=== PATIENT | female | born 1995 | race Caucasian/White ===

== ENCOUNTER 2017-12-22 09:30 | Outpatient (RCR) | payer MEDICAID, SELFPAY ==
--- NOTE | 2017-11-16 13:42 | HP.PTEVAL ---
Patient's Visit Information JUDIT AHMADI is a 22 year old F referred to Physical Therapy by TEJINDER ALVARES JR, JR with a diagnosis of S/P L pes cavus reconstruction. Date of Evaluation: 11/14/17 Physical Therapist: Rubens Jaeger - Visit Plan Frequency: 3x /Week Duration: 6-8 weeks Plan: Start with ankle mobility, G/S stretching, US for pain management, ankle strengthening. Use aquatics for gait mechanics and mobility. Pt. was apprehensive about aquatic therapy with reports that she does not swim and is afraid of water. I will contact physician to see if we can focus more on land PT. Progress towards gait mechanics and proprioception exercises/activities as tolerated. - Subjective Subjective: Pt. is here today for her initial evaluation s/p L pes cavus reconstruction. Pt. 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 She is here with her grandmother today. Pt. reports having progressive increase in B feet for year. Pt. has having increased pes cavus with most of her wt. being applied to lateral aspect. Pt. will eventually have to have the R foot completed as well. She is now walking with a CAM boot and a walker, but is WBAT, pt./grandmother unsure if she is to be in the CAM boot with all walking or progress out of it. Pt. did confess walking with out boot on to her bathroom and back with walker, no pain reported. Prior to surgery pt. was not using an AD, but did have trouble with balance. Pt. reports no pain currently, but has increased pain to 3/10 at times. Pt. did defer to grandmother to more most questioning. Pt. has been doing some ankle circles and DF/PF. SHe will eventually get fit for bilateral Dayana braces her grandmother. Grandmother reports Pt. and grandmother are hopeful that she will get away from walker and had no pain with all functional mobility. - Pain L foot Pain Intensity (Out of 10): 0 Pain Intensity Range: 3 - Objective POSTURE: pt. has flexed posture in stance. Pt. has increased pes cavus on her R side. Pt. does use AD in stance. Pt. is able to put foot flat on floor. Pt. unwilling to trial standing without AD this date. PALPATION: Pt. denies pain with palpation throughout L foot, and G/S complex. Pt. does have some mild brusing at lateral aspect of calcaneal region, normal heeling incision on dorsal aspect of L foot. Pt. has no signs of infection, but does have mild edema, non pitting. NEUROLOGICAL: Pt. has normal sensation to light and sharp touch throughout bilateral LEs. Pt. has 2+ achilles and patellar DTR bilaterally. ROM: R ankle- DF 4deg, PF 54deg, INV 22deg, EVR 8deg. L ankle- DF 2deg, PF 49deg, INV 20deg, EVR 2deg. Pt. reports no pain with over pressure throughout L ankle foot. Pt. has normal knee ROM bilaterally. Pt. has marked tightness in bilateral G/S musculature. MMT: RLE- ankle- PF 5/5, DF 4+/5, EVR 4+/5, INV 5/5; knee- ext 5-/5, flexion 4+/5; hip- flexion flexion 4+/5, abd 4+/5, ext 4+/5. LLE- ankle DF 4/5, PF 5-/5, EVR 4/5, INV 5-/5. GAIT: Pt. ambulates with CAM boot and standard walker (pt. has FWW at home). Pt. is able to ambulate STARR without LOB. Pt. is able to apply increased wt. through her LLE, but does use UEs to off load LLE during stance phase. Pt. was able to reduce UE assistance with VCing. Pt. declined to trial stairs this date. - Goals Goal 1:: Pt. to be I with HEP. Goal Time Frame: 6-8 Weeks Goal 2:: Pt. to have 10deg of L ankle DF allowing for increased gait mechanics. Goal Time Frame: 6-8 Weeks Goal 3:: Pt. to have increased LLE strength by 1/2 grade in all effected musculature increasing ankle stability and ability to complete all ADLs. Goal Time Frame: 6-8 Weeks Goal 4:: Pt. to be able to grinder set up operator internal L SLS for 30sec indicating increased L ankle proprioception. Goal Time Frame: 6-8 Weeks Goal 5:: Pt. to report 0-1/10 pain with all walking and ADLs allowing for increased quality of life. Goal Time Frame: 6-8 Weeks Goal 6:: Pt. to ambulate without AD unlimited distances with improved gait patterns allowing for increased independence in home and community. Goal Time Frame: 6-8 Weeks - Rehabilitation Potential Physical Therapy Diagnosis: Pt. has hypomobility, LLE weakness and gait difficulty s/p L pes cavus reconstruction. Pt. would benefit from PT to increase L ankle/foot stability, increase L ankle strength, increased G/S length and increase gait mechanics in order to reduce need for AD and get back to prior levels of function. Rehabilitation Potential: Good - Anticipated Interventions Patient/Client Instruction: Educate patient on: Condition, Plan of Care, Risk Factors, Benefits of Fitness Program For the Purpose of:: To foster healthy habits, To improve decision making, To facilitate caregiver knowledge, To improve self management, To prevent re-injury, To improve ability to perform tasks related to life management, To improve tolerance to ADL's Therapeutic Exercise to Include: Strength training, Power training, Endurance training, Balance training, Postural training, Flexibilty training, Gait and locomotor training, Passive ROM, Active ROM For the Purpose of:: To decrease pain, To decrease swelling/inflammation, To increase ROM, To improve nutrient delivery to tissue, To increase oxygenation perfusion, To improve muscle performance and motor function, To improve ability to perform ADL's, To increase tolerance to activity/condition/position, To improve gait and locomotor functions, To improve health of tissue, To decrease soft tissue restriction, To increase flexibility/ROM, To improve balance, To improve safety with gait Cryotherapy (ice pack, ice massage): Yes Ultrasound (thermal/non thermal): Yes For the Purpose of:: To decrease pain, To decrease swelling/inflammation, To increase ROM Thank you for the opportunity to evaluate your patient. For Medicare and Medicare HMO plans, please review the plan of care and approve it. It will need to be FAXED BACK to us at [phone] for Medicare purposes. Please let me know if there are questions or concerns regarding this plan of care. Physician Signature: Date:
--- NOTE | 2018-05-31 16:55 | HP.PTDCNRP_ITS ---
HP - Discharge Summary (1) - Patient Information JUDIT AHMADI was seen in my office for initial evaluation on 11/14/17. The following Plan of Care was established for this patient: Initial Frequency: 3x /Week Initial Duration: 6-8 weeks - Anticipated Interventions Patient/Client Instruction: Educate patient on: Condition, Plan of Care, Risk Factors, Benefits of Fitness Program For the Purpose of:: To foster healthy habits, To improve decision making, To facilitate caregiver knowledge, To improve self management, To prevent re-injury , To improve ability to perform tasks related to life management, To improve tolerance to ADL's Therapeutic Exercise to Include: Strength training, Power training, Endurance training, Balance training, Postural training, Flexibilty training, Gait and locomotor training, Passive ROM, Active ROM For the Purpose of:: To decrease pain, To decrease swelling/inflammation, To increase ROM, To improve nutrient delivery to tissue, To increase oxygenation perfusion, To improve muscle performance and motor function, To improve ability to perform ADL's, To increase tolerance to activity/condition/position, To improve gait and locomotor functions, To improve health of tissue, To decrease soft tissue restriction, To increase flexibility/ROM, To improve balance, To improve safety with gait Cryotherapy (ice pack, ice massage): Yes Ultrasound (thermal/non thermal): Yes For the Purpose of:: To decrease pain, To decrease swelling/inflammation, To increase ROM This patient was last seen in our office 12/22/17. Pertinent comments regarding their Physical therapy will appear below: Pt. was seen for her pes planus reconstruction. Pt. was treated on land and in aquatic setting. Pt. was improving, but slowly. Pt. was to continue with PT, but cancelled her last visit and did not return. Pt. has not been seen in ~5 months and will be DC from PT at this point in time. At this point I will be discontinuing this patient from physical therapy. I would be happy to see this patient again in the future if found appropriate by the physician. Thank you! Rubens Jaeger
== END 2017-12-22 19:00 | disposition home or self-care (01) ==
LOC: PT 09:30
DX: Z98.890 Other specified postprocedural states (principal)
CPT/HCPCS: 97110; 97113; 97161

== ENCOUNTER 2018-04-27 17:16 | Emergency (ER) | payer MEDICAID, SELFPAY ==
[2018-04-27 17:17] VITALS: BP 138/76; PULSE 95; RESP 18; TEMP 36.7; O2SAT 98; BMI 32.0
--- NOTE | 2018-04-27 17:48 | ED.VISSUMM ---
- ER Visit Summary Date of Service: 04/27/18 Chief Complaint: Abscess History of Present Illness: The patient is a 23 F presenting with abscess to left axilla. This started approximately 1 week ago and has been progressively worsening. No drainage at home. No fever. She has a history of similar symptoms approximately a year ago. Denies other complaints. Physical Examination: Vitals are stable. Patient is afebrile. Alert no acute distress. HEENT exam is unremarkable. Neck is supple. Lungs are clear and equal bilaterally. Heart is regular rate and rhythm. Extremities 2 cm left axilla abscess with fluctuance Skin is warm and dry. Remainder of exam is unremarkable. Emergency Department Course and Treatment: Incision and drainage was performed. Incised with 11 blade. Probed to break up loculations. Irrigated with saline. Moderate amount of pus was drained. Patient tolerated this well. She is given prescription for Bactrim and Keflex. Advised to follow-up with primary care physician. Advised return to ED for worsening complaints. Disposition: Discharge home Impression: Left axilla abscess, I&D This note was generated with [employer] dictation software. It may contain incorrect words, spelling, and punctuation that were not noted in review of the chart prior to signing ED Disposition - Plan for ED Patient: Chief Complaint: Abscess Referrals: Genevieve Blanchard DO [Primary Care Provider] -
--- NOTE | 2018-04-27 18:30 | ED.DEP ---
ED Disposition - Plan for ED Patient: Chief Complaint: Abscess Instructions: ED Abscess IandD Prescriptions: Cephalexin Suspension [Keflex Suspension] 500 mg PO Q6 #7 days Smz/Tpm Suspension [Bactrim Suspension 800-160mg/20ml] 20 ml PO Q12H #7 days Referrals: Genevieve Blanchard DO [Primary Care Provider] -
[2018-04-27 18:57] VITALS: PULSE 90; RESP 16
== END 2018-04-27 18:58 | disposition home or self-care (01) ==
PROVIDERS: Emergency Provider Emergency Medicine
DX: L02.412 Cutaneous abscess of left axilla (principal)
CPT/HCPCS: 10060; 99282

== ENCOUNTER → 2018-09-07 15:20 | Outpatient (CLI) | payer MEDICAID, SELFPAY ==
[2018-09-07 17:42] LABS: Vitamin D,25 Hydroxy 7.3 ng/mL (29.95-100.01)
[2018-09-07 17:45] LABS: Thyroid Stim Hormone (TSH) 0.66 uIU/mL (0.358-3.74)
[2018-09-12 03:07] LABS: Immunoglobulin A 167 mg/dL (87-352); Immunoglobulin G 766 mg/dL (700-1600); Immunoglobulin M 256 mg/dL (26-217)
[2018-09-12 09:40] LABS: Immunoglobulin E 13 IU/mL (0-100)
== END ==
PROVIDERS: Referring Provider Specialist; Visit Provider Specialist
DX: E55.9 Vitamin D deficiency, unspecified (principal); E04.9 Nontoxic goiter, unspecified; L02.429 Furuncle of limb, unspecified; M81.8 Other osteoporosis without current pathological fracture
CPT/HCPCS: 36415; 82306; 82784; 82785; 84443

== ENCOUNTER → 2018-12-07 14:44 | Outpatient (CLI) | payer MEDICAID, SELFPAY ==
--- NOTE | 2018-12-07 14:58 | RAD_ITS ---
STUDY: BONE LENGTH STUDIES. SCANOGRAM. REASON FOR EXAM: Female, 23 years old. Left foot surgical reconstruction. TECHNIQUE: 4 AP views of the lower extremities were obtained. COMPARISON: None. FINDINGS: No significant leg length discrepancy is seen. RAD/Bone Length IMPRESSION: No significant leg length discrepancy is seen. Electronically Signed: Pavel Coats MD at 14:52 EST , Service support ,
[2018-12-07 17:49] LABS: Hematocrit 47.5 % (37-47); Hemoglobin 15.2 g/dl (12.0-15.0); Mean Corpuscular Hgb 30.8 pg (27.0-32.0); Mean Corpuscular Volume 96.3 fL (81-99); Mean Platelet Vol. 12.1 fl (6.2-12.0); Platelet Count 220 K/mm3 (150-450); RBC Distribution Width CV 12.8 % (11.6-14.6); RBC Distribution Width SD 44.7 fl (35.1-43.9); Red Blood Count 4.93 M/mm3 (4.2-5.4); White Blood Count 10.7 K/mm3 (4.4-11.0)
[2018-12-07 17:54] LABS: Scan Indicated on CBC? Y/N NO
[2018-12-07 18:06] LABS: ALB/GLOB Ratio 1.1 RATIO (0.9-2.4); AST(SGOT) 21 U/L (15-37); Alanine Aminotransfer ALT/SGPT 25 U/L (13-56); Albumin, Serum 4.1 g/dL (3.2-5.0); Alkaline Phosphatase 180 U/L (45-117); Anion Gap 8 (5-15); BUN 8 mg/dL (7-18); BUN/Creat Ratio 13.3 RATIO (10-20); Bilirubin, Direct 0.06 mg/dL (0.00-0.30); Calcium,Total 9.3 mg/dL (8.5-10.1); Chloride 104 mmol/L (98-107); EST Glomerular Filtration Rate 131 mL/min (>60); Est Glom Filt Rate - Afr Amer 158 mL/min (>60); Globulin 3.8 g/dL (2.2-4.2); Glucose 84 mg/dL (74-106); Potassium 4.2 mmol/L (3.5-5.1); Protein, Total 7.9 g/dL (6.4-8.2); Sodium Level 138 mmol/L (136-145)
[2018-12-07 18:29] LABS: Carbamazepine (Tegretol) 9.9 ug/mL (4.0-12.0)
== END ==
PROVIDERS: Referring Provider Podiatrist; Visit Provider Podiatrist
DX: M21.70 Unequal limb length (acquired), unspecified site (principal); G40.909 Epilepsy, unspecified, not intractable, without status epilepticus
CPT/HCPCS: 36415; 77073; 80053; 80156; 82248; 85027

== ENCOUNTER → 2019-04-13 | Outpatient (CLI) | payer MEDICAID, SELFPAY ==
[2019-04-13 14:22] LABS: AST(SGOT) 17 U/L (15-37); Alanine Aminotransfer ALT/SGPT 23 U/L (13-56); Albumin, Serum 3.7 g/dL (3.2-5.0); Alkaline Phosphatase 159 U/L (45-117); Bilirubin, Direct 0.09 mg/dL (0.00-0.30); Protein, Total 7.7 g/dL (6.4-8.2)
== END | disposition home or self-care (01) ==
LOC: MTLAB 12:19
PROVIDERS: Referring Provider Clinical Nurse Specialist Acute Care; Visit Provider Clinical Nurse Specialist Acute Care
DX: R56.9 Unspecified convulsions (principal); Z87.898 Personal history of other specified conditions
CPT/HCPCS: 36415; 80076

== ENCOUNTER → 2019-08-07 | Outpatient (CLI) | payer MEDICAID, SELFPAY ==
[2019-08-07 17:49] LABS: Absolute Lymphocyte Count 2.77 X10^3/uL (0.83-4.51); Absolute Neutrophil Count 8.5 X10^3/uL (2.0-7.7); Basophil# 0.02 X10^3/uL; Basophil% 0.2 % (0-1); Eosinophil# 0.08 X10^3/uL; Eosinophils% 0.7 % (0-5); Hematocrit 45.9 % (37-47); Hemoglobin 14.6 g/dL (12.0-15.0); Lymphocyte # 2.77 X10^3/ul (4.0); Lymphocyte % 23.3 % (19-41); Mean Corp Hgb Conc 31.8 g/dL (32-36); Mean Corpuscular Hgb 29.4 pg (27.0-32.0); Mean Corpuscular Volume 92.4 fL (81-99); Mean Platelet Vol. 12.4 fl (6.2-12.0); Monocyte# 0.44 X10^3/uL; Monocyte% 3.7 % (0-10); NRBC Flagged by Analyzer 0 % (0-5); Neutrophil # 8.51 X10^3/uL (2.7-7.7); Neutrophil % 71.7 % (47-70); Platelet Count 189 K/mm3 (150-450); RBC Distribution Width CV 13.5 % (11.6-14.6); Red Blood Count 4.97 M/mm3 (4.2-5.4); White Blood Count 11.9 K/mm3 (4.4-11.0)
[2019-08-07 18:07] LABS: ALB/GLOB Ratio 1.1 RATIO (0.9-2.4); AST(SGOT) 14 U/L (15-37); Alanine Aminotransfer ALT/SGPT 23 U/L (13-56); Albumin, Serum 3.9 g/dL (3.2-5.0); Alkaline Phosphatase 156 U/L (45-117); Anion Gap 5 (5-15); BUN 6 mg/dL (7-18); BUN/Creat Ratio 8.5 RATIO (10-20); Calcium,Total 9.1 mg/dL (8.5-10.1); Chloride 106 mmol/L (98-107); Creatinine, Serum 0.71 mg/dL (0.55-1.02); EST Glomerular Filtration Rate 107 mL/min (>60); Est Glom Filt Rate - Afr Amer 130 mL/min (>60); Globulin 3.5 g/dL (2.2-4.2); Glucose 122 mg/dL (74-106); Potassium 4.3 mmol/L (3.5-5.1); Protein, Total 7.4 g/dL (6.4-8.2); Sodium Level 139 mmol/L (136-145)
== END | disposition home or self-care (01) ==
LOC: MFPLAB 15:19
PROVIDERS: Visit Provider Family Medicine
DX: Z01.818 Encounter for other preprocedural examination (principal)
CPT/HCPCS: 36415; 80053; 85025

== ENCOUNTER 2019-08-17 06:00 | Day surgery (SDC) | payer MEDICAID, SELFPAY ==
[2019-08-17 06:43] VITALS: BP 133/89; PULSE 60; RESP 18; TEMP 36.8; O2SAT 96; BMI 31.7
[2019-08-17 07:01] LABS: Partial Thromboplast Time 29.3 Seconds (24.1-36.2)
[2019-08-17] MEDS: Lactated Ringers 1,000 ML 100 ML IV (07:07)
[2019-08-17 07:08] LABS: Internal QC Validated? YES +Cl - CLEAR BKGD; Pregnancy, Serum, hCG Quali. NEGATIVE Negative
--- NOTE | 2019-08-17 07:26 | PCM.DC.POD ---
Discharge Diet: Light diet - advance as tolerated Discharge Activity: Use Walker Weight Bearing Status: No weight bearing - No weight on toes of left foot Keep extremity elevated above heart level: Left Leg - Keep left foot elevated with pillows for at least 50 minutes of every hour Call your doctor if your incision/area has: Continuous Slow Oozing, Sudden Increased Bleeding, Foul Smelling Discharge Call your doctor if you observe: Fever of 101 or Higher, Shortness of breath, Chest pain, Increased palpitations (irregular heartbeat), Calf discomfort, Uncontrolled pain Cleanse incision/area with: Do not get Incision Wet, Keep Dressing Clean & Dry Allergies/Adverse Reactions: Allergies amoxicillin [From Augmentin] Allergy (Verified 08/17/19 06:42) Hives clavulanic acid [From Augmentin] Allergy (Verified 08/17/19 06:42) Hives Iodinated Contrast Media [CONTRASTS] Allergy (Verified 08/17/19 06:42) Hives Penicillins [PCN] Allergy (Verified 08/17/19 06:42) Hives phenobarbital Allergy (Verified 08/17/19 06:42) Hives Medications to take at Discharge Carbamazepine [Tegretol] 100 mg PO BIDCM 07/02/16 Cholecalciferol (Vitamin D3) [Vitamin D3] 2,000 unit PO DAILY 08/13/19 Fexofenadine HCl [Gloria Allergy] 180 mg PO DAILY 08/13/19 Hydrocodone/Acetaminophen [Vicodin 5-300 mg Tablet] 1 - 2 tab PO Q6H PRN PRN 3 Days #24 tab 08/17/19 The following prescriptions were given: Hydrocodone/Acetaminophen [Vicodin 5-300 mg Tablet] 1 - 2 tab PO Q6H PRN PRN 3 Days #24 tab PRN Reason: Pain Score 1-10 Prescription Printed Orders to be completed after discharge: Partial Thromboplast Time Time Frame: 08/17/19, Facility: [facility], Location: Laboratory ,Urine Time Frame: 08/17/19, Facility: [facility], Location: Laboratory Primary Care Physician: Bernice Mc MD [Primary Care Provider] - Test Results: Test results from this visit will be discussed in further detail at your follow-up appointment, if applicable. Please Follow Up With: Elbert Sanford DPM When: within 1 week, sooner if needed
--- NOTE | 2019-08-17 07:30 | BON_PTH ---
PATIENT: JUDIT AHMADI [place] [facility] [place][id number] AGE/SX: 24/F ROOM: RE08/17/[address]: Dr. Elbert Sanford DPM : 1995 BED: DIS: 08/17/2019 SPEC #: [id number] RECD: 08/17/19 11:54 STATUS: CHRIS DENISE #: [id number] [place]: 08/17/19 07:[address]: Elbert Sanford DEPT: SURGICAL PATHOLOGY RECD BY: Daren Suarez ENTERED: 08/17/19 13:06 SP TYPE: Bone OTHR DR: Dr. Bernice Mc MD Tissues: A - Bone of foot, NOS B - Bone of foot, NOS Procedures: Decalcification bone/plaque Surgery Specimen Level III HEADER OPERATION: Arthrodesis left fourth toe, derotational arthroplasty PRE-OP DIAGNOSIS: Left foot pain, hammertoe TISSUE SUBMITTED: Bone, fourth and fifth toes MICROSCOPIC DIAGNOSIS Bone, fourth and fifth toes: Pieces of bone with reactive changes, clinically hammertoe. BRIDGETTE:kim 08/22/19 MICROSCOPIC DESCRIPTION Slides are reviewed. GROSS DESCRIPTION Received in fixative is one container labeled with the patient's name and designated bone, fourth and fifth toes. The specimen consists of four variable sized pieces of bone that in aggregate measure 1.5 x 1 0.3 cm. The entire specimen is submitted in one cassette after decalcification. / BRIDGETTE:kim 08/17/19 TC:5 CPT: 47246, 22668
--- NOTE | 2019-08-17 07:30 | RAD_ITS ---
STUDY: X-RAY - LEFT FOOT CLINICAL: Fourth toe arthrodesis and derotational arthroplasty and contracture release of the fifth toe. TECHNIQUE: 2 intraoperative images of the foot. COMPARISON: None. FINDINGS: There is a threaded screw transfixing the phalanges of the fourth digit. There are resections of the distal fifth metatarsal and fifth proximal phalangeal head with a transfixing pin. 32 seconds of fluoroscopy time was used. Electronically Signed: Tobias Chacon MD at 12:36 EDT Tel , Service support , RAD/Foot 2 Views
[2019-08-17] MEDS: Bupivacaine Mpf 0.5% 30 ML VIAL (07:43)
--- NOTE | 2019-08-17 08:48 | RAD_ITS ---
STUDY: X-RAY - LEFT FOOT CLINICAL: Female, 24 years old. Arthrodesis of the left fourth toes. TECHNIQUE: 3 view(s) of the foot. COMPARISON: Comparison is made with prior examination done earlier today. FINDINGS: The patient is status post arthrodesis of the fifth metatarsophalangeal joint as well as the interphalangeal joints of the fourth toe. There has been resection of the distal portion of the fifth metatarsal. Prior fusion of the distal tarsal bones. RAD/Foot min 3 Views IMPRESSION: Postoperative changes as described. Electronically Signed: Pavel Coats, at 15:04 EDT , Service support ,
--- NOTE | 2019-08-17 08:49 | OP.PCM_ITS ---
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 Derotational arthroplasty of the left 5th toe tactical intelligence officer: yes - Dr. Shannan Sorenson Type of Anesthesia:: General, Local Specimen's removed: Bone from left 4th and 5th toes sent to pathology Estimated Blood Loss (mL): < 1 mL Description of Procedure: Indications: This is a 24 year-old female who has had chronic left 4th toe pain, the 4th toe is contractured hammer toe, and also the left 5th toe is contractured, floating, shortened, and deviated into the 4th toe causing pain. She continues to have pain despite padding, offloading, changes in shoegear, ibuprofen, and injection. She has had previous left foot surgery which has left the 5th toe short and now deformed. Due to the continued pain and symptoms we discussed all of the options, and she elected to proceed with arthrodesis of the 4th toe and derotational arthroplasty of the 5th. This was discussed with her and her grandmother in great detail. We reviewed all the possible benefits, risks, goals and expectations. They expressed understanding and agreement. We also reviewed the typical postoperative and expected postoperative course. They expressed understanding and agreement and wanted to proceed forward with surgical intervention. All alternative options were discussed with them and all the possible benefits, risks of the alternative options were discussed with them as well in detail. They expressed understanding and agreement and again wants to proceed for surgical intervention. The consent form was reviewed with them and they were freely signed. No guarantees were given or implied. Operative Procedure: The patient was brought back into the operating room and was placed onto the operative table in the supine position. She was carefully secured to the operating room table with safety belt around her waist. The patient did receive 900mg of intravenous Clindamycin for antibiotic prophylaxis, the patient received anesthesia per the anesthesiologist. The skin w as cleansed with 70% Isopropyl alcohol and a total of 10mL of 0.5% Bupivacaine plain was given a 4th and 5th ray nerve block. A well-padded pneumatic tourniquet was applied around her left ankle. The left foot was scrubbed, prepped and draped in the usual aseptic fashion. Further attention was directed to the left 4th and 5th toes, which was contracted and hammered as noted above. The 5th toe was in significant varus and was significantly shortened. The left foot was elevated for 3 minutes and the right ankle pneumatic tourniquet was inflated to 250mmHg. Attention was directed to the 4th toe on the left foot. A dorsal linear longitudinal incision was made over the proximal interphalangeal joint (PIPJ) of the toe. An incision was made longitudinally to the extensor digitorum longus tendon and split down the middle, leaving the ends intact, this was done with a 15 blade. The dorsal PIPJ joint capsule was incised with a 15 blade. The cartilage from the head of the proximal phalanx and the cartilage on the base of the middle phalanx was resected using a powered sagittal saw. The site was flushed out with copious amounts of normal saline solution. An Arthrex FT compression screw was placed through the phalanges of the toe holding the toe in rectus position. This was confirmed with intra operative fluoroscopy. The site was again flushed out with copious amounts of normal saline solution. The skin was reapproximated using 4-0 Monocryl. Attention was directed to the 5th toe on the left foot. Two oblique semi- elliptical converging skin incisions were made around the dorsal aspect of the proximal interphalangeal joint (PIPJ) of the 5th toe. The skin within the incisions was excised. The extensor digitorum longus tendon was visualized and incised transversely with a 15 blade. The dorsal PIPJ joint capsule was incised with a 15 blade. The extensor tendon was reflected off of the head of the proximal phalanx. The PIPJ was visualized. The head of the proximal phalanx was resected using a powered sagittal saw, and this was sent to pathology. The site was flushed out with copious amounts of normal saline solution. A 0.062 inch kwire was placed through the phalanges of the toe and along the 5th metatarsal holding the toe in rectus position clinically. This was confirmed with intra operative fluoroscopy. The site was again flushed out with copious amounts of normal saline solution. The joint capsule and extensor digitorum longus tendon was reapproximated using 4-0 Vicryl, the skin was reapproximated using 4-0 Nylon. The kwire was trimmed outside of the toe at the distal aspect and was capped with a pin cap. The left ankle tourniquet was deflated and there was immediate return of warmth and perfusion to the foot, including all toes. CFT < 2 seconds to all toes with normal temperature. Total tourniquet time was 51 minutes. A dressing was applied which consisted of Adaptic, 4x4 gauze, kerlix and rodrick bandage. The patient tolerated the above procedure well and anesthesia well with no complications. The patient was transported from the operative room to the recovery room with vital signs stable and in good condition. Post operative ord ers were placed, and post operative instructions were reviewed with the her grandmother was with her today (verbal and written). No weightbearing left forefoot, keep the dressing clean, dry and intact. Keep foot elevated for at least 50 minutes of every hour. Post operative prescriptions for Vicodin for pain control. Patient to follow up in 3-4 days, sooner if needed. Also of note post operative xrays were obtained of the right foot in the recovery room, which were reviewed. These confirmed arthrodesis of td 4th toe and arthroplasty of the 5th toe with kwire intact, and toes in good alignment clinically. Grafts/Implants Used: Arthrex FT compression screw, 1 x 0.062in K wire - Complications None
[2019-08-17 08:57] VITALS: BP 133/89; BP 156/93; PULSE 103; RESP 18; TEMP 36.3; O2SAT 93
[2019-08-17 09:00] VITALS: BP 133/89; BP 159/85; PULSE 95; RESP 18; O2SAT 93
[2019-08-17 09:15] VITALS: BP 133/89; BP 159/87; PULSE 93; RESP 18; O2SAT 95
[2019-08-17 09:27] VITALS: BP 133/89; BP 157/84; PULSE 91; RESP 18; TEMP 36.3; O2SAT 97
[2019-08-17 10:21] VITALS: BP 121/72; BP 133/89; PULSE 97; RESP 18; TEMP 36.4; O2SAT 98
== END 2019-08-17 10:54 | disposition home or self-care (01) ==
LOC: SDC 06:01 → AC 06:02
PROVIDERS: Anesthesiology; Family Provider Family Medicine; PCP Family Medicine; Referring Provider Podiatrist; Visit Provider Podiatrist
PROC: (CPT 28285; principal; 2019-08-17 07:15)
DX: M20.42 Other hammer toe(s) (acquired), left foot (principal); F79 Unspecified intellectual disabilities; R56.9 Unspecified convulsions; Z79.899 Other long term (current) drug therapy
CPT/HCPCS: 28285 ×2; 73620; 73630; 76000; 84703; 85730; 88304; 88311; 93005; C1713; J7120; J2405; J3490

== ENCOUNTER → 2019-10-19 15:25 | Outpatient (CLI) | payer MEDICAID, SELFPAY ==
--- NOTE | 2019-10-19 15:27 | RAD_ITS ---
STUDY: X-RAY - THORACIC SPINE REASON FOR EXAM: Female, 24 years old. UPPER BACK PAIN, NO INJURY TECHNIQUE: 3 view(s) of the thoracic spine were obtained. COMPARISON: None. FINDINGS: Normal kyphosis of the thoracic spine. There is no substantial scoliosis. Normal thoracic vertebrae and endplates. Normal disc space heights. The soft tissue structures are unremarkable. RAD/Thoracic Spine 3 Views IMPRESSION: Normal x-ray examination of the thoracic spine. Electronically Signed: Margy Steele MD at 2:46 EST , Service support ,
== END ==
PROVIDERS: Family Provider Family Medicine; PCP Family Medicine; Referring Provider Family Medicine; Visit Provider Family Medicine
DX: M54.6 Pain in thoracic spine (principal)
CPT/HCPCS: 72072

== ENCOUNTER 2019-10-29 15:44 | Emergency (ER) | payer MEDICAID, SELFPAY ==
[2019-10-29 15:46] VITALS: BP 125/74; PULSE 105; PULSE 107; RESP 16; RESP 18; TEMP 36.9; O2SAT 97; BMI 31.8
--- NOTE | 2019-10-29 17:30 | ED.VISSUMM ---
- ER Visit Summary Date of Service: 10/29/19 Chief Complaint: Abscess History of Present Illness: The patient is a 24 F who presents with an abscess that has been getting worse over the past week. Patient saw her primary care physician for this. Patient was given an injection of Rocephin and was started on Bactrim. Patient states the abscess is getting worse. Patient denies any discharge or drainage. Patient denies any fevers or chills. Patient denies any nausea or vomiting. Patient states her pain is worse with any palpation. Physical Examination: Vital signs are stable. Patient is afebrile. Patient is in no acute distress. Skin is warm and dry. There is a tender fluctuant abscess on the medial aspect of the right proximal thigh. There is some mild fluctuance. There is no discharge or drainage. There is some mild surrounding erythema. Sensation was intact to light touch bilateral in the lower extremities. Pedal pulses are equal bilateral. There is good range of motion. Emergency Department Course and Treatment: The area was cleaned and then dressed x1% plain lidocaine locally. The area was incised with a #11 blade scalpel using a cruciate incision. Moderate amount of purulent drainage was expressed. Patient tolerated the procedure well. Bacitracin dressing was applied. Patient was instructed to continue her Bactrim as prescribed. Patient was instructed to follow-up with her primary care physician in 5 to 7 days. Patient and family understood and were agreeable with the plan. All questions were answered. Disposition: Discharge home Impression: Right thigh abscess This note was generated with [employer] dictation software. It may contain incorrect words, spelling, and punctuation that were not noted in review of the chart prior to signing ED Disposition - Plan for ED Patient: Disposition: Home or Assisted Living Diagnosis: Abscess of right thigh Instructions: ABSCESS, Incision and Drainage Referrals: Genevieve Blanchard DO [Primary Care Provider] - 5-7 Days
== END 2019-10-29 18:48 | disposition home or self-care (01) ==
PROVIDERS: Emergency Provider Emergency Medicine
DX: L02.415 Cutaneous abscess of right lower limb (principal); Z79.2 Long term (current) use of antibiotics; K21.9 Gastro-esophageal reflux disease without esophagitis
CPT/HCPCS: 10060; 99283

== ENCOUNTER → 2021-04-30 10:30 | Outpatient (CLI) | payer MEDICAID, SELFPAY ==
[2021-04-30 12:20] LABS: AST(SGOT) 14 U/L (15-37); Alanine Aminotransfer ALT/SGPT 15 U/L (13-56); Albumin, Serum 3.7 g/dL (3.2-5.0); Alkaline Phosphatase 148 U/L (45-117); Anion Gap 5 (5-15); BUN 9 mg/dL (7-18); BUN/Creat Ratio 13.7 RATIO (10-20); Calcium,Total 9.4 mg/dL (8.5-10.1); Chloride 103 mmol/L (98-107); Creatinine, Serum 0.66 mg/dL (0.55-1.02); EST Glomerular Filtration Rate 116 mL/min (>60); Est Glom Filt Rate - Afr Amer 140 mL/min (>60); Globulin 3.6 g/dL (2.2-4.2); Glucose 94 mg/dL (74-106); Potassium 4.5 mmol/L (3.5-5.1); Protein, Total 7.3 g/dL (6.4-8.2); Sodium Level 139 mmol/L (136-145)
[2021-04-30 12:25] LABS: Carbamazepine (Tegretol) 10.8 ug/mL (4.0-12.0)
== END ==
PROVIDERS: Referring Provider Clinical Nurse Specialist Acute Care; Visit Provider Clinical Nurse Specialist Acute Care
DX: G40.309 Generalized idiopathic epilepsy and epileptic syndromes, not intractable, without status epilepticus (principal)
CPT/HCPCS: 36415; 80053; 80156

== ENCOUNTER 2021-05-13 09:30 | Outpatient (RCR) | payer MEDICAID, SELFPAY ==
--- NOTE | 2021-04-06 10:49 | HP.PTEVAL_ITS ---
Patient's Visit Information JUDIT AHMADI is a 25 year old F referred to Physical Therapy by TEJINDER ORO with a diagnosis of L foot contraction. Date of Evaluation: 04/06/21 Physical Therapist: Brayden Boogie, VENKATAT, OCS, CSCS - Visit Plan Frequency: 2x /Week Duration: 2 Months Plan: 2x/week for 6-8 weeks as needed for aquatic therapy for. SLS. ankle AROM/PROM stretches into DF. Strengthenin ankles, LE and postural focus/strength. - Subjective L foot surgery for tor tendon trasnfer due to tightness weakness and foot rotating in. That was 02/06, 2 months ago. Feels good, no pain. Been in cast at first with walker, now boot everywhere and no AD. No falls. Sleeps well. No exercises except AP, inv/ev.. Takes boot off later in day to move adn walk to bathroom. Works at the [employer] in [facility] through [employer]. 2 days per week which is normal for her. Enjoys singing, writing. Has to sit now. Needs help off and on stage. Lives with grandma with steps and uses stairlift. Electric bath lift also. Dresses adn bathroom self Can help cook. Needs assist with bath due to balance. 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 - Objective Walks with boot on L I with boot related gait deficits.. Up from chair without UE I. Steps up with R and down with L with two rails I. Bed trasnfer I. Boot on L foot donned adn doffed I, Grandma did help put it back on. L foot AROM -18 DF and PROM -4 DF, Inv 18 AROM and eversion 3 degree eversion. adn 50 PF. Metatarsals moving well. Incisions healed, with one scab on medial incision. No signs of redness heat or swelling. strength DF 3, PF 3+, eversion 3 and inversion 3. R foot AROM eversion 5 , inv 22, DF -10, PF 50, strength at 4-. knee strength 3+ L and 4- R. hip strength 3+ B. no c/o pain today. Unable to SLS today and not confident enough with SLS to step over an object effectively. - Balance Scores Functional Gait Assessment Score: 22 % Disability: 26.6700 - Goals Goal 1:: AROM L foot -5 degrees, inversion 20, eversion 4 Goal Time Frame: 6-8 Weeks Goal 2:: strength L ankle 3+ latia ll motions Goal Time Frame: 4-6 Weeks Goal 3:: SLS 3 seconds each leg Goal Time Frame: 6-8 Weeks Goal 4:: Pt feel walking normal without boot and back to 100% normal gait and function Goal Time Frame: 6-8 Weeks Goal 5:: 45 LEFS - Rehabilitation Potential Physical Therapy Diagnosis: Tightness in L foot and weakness after recent surgery. Rehabilitation Potential: Fair - Anticipated Interventions Patient/Client Instruction: Educate patient on: Condition, Plan of Care For the Purpose of:: To improve nutrient delivery to tissue, To improve muscle performance and motor function, To improve health of tissue, To improve balance Therapeutic Exercise to Include: Strength training, Balance training, Postural training, Flexibilty training, Gait and locomotor training, In an aquatic setting, Passive ROM, Active ROM For the Purpose of:: To increase ROM, To improve muscle performance and motor function, To increase tolerance to activity/condition/position, To improve gait and locomotor functions, To improve safety with gait Thank you for the opportunity to evaluate your patient. For Medicare and Medicare HMO plans, please review the plan of care and approve it. It will need to be FAXED BACK to us at [phone] for Medicare purposes. For Medicare only, by signing this I certify the plan of care. Please let me know if there are questions or concerns regarding this plan of ca re. Physician Signature: Date:
--- NOTE | 2021-07-20 07:20 | HP.PT.NRP ---
JUDIT AHMADI was seen in my office for initial evaluation on 04/06/21. The following Plan of Care was established for this patient: Initial Frequency: 2x /Week Initial Duration: 2 Months Patient/Client Instruction: Educate patient on: Condition, Plan of Care For the Purpose of:: To improve nutrient delivery to tissue, To improve muscle performance and motor function, To improve health of tissue, To improve balance Therapeutic Exercise to Include: Strength training, Balance training, Postural training, Flexibilty training, Gait and locomotor training, In an aquatic setting, Passive ROM, Active ROM For the Purpose of:: To increase ROM, To improve muscle performance and motor function, To increase tolerance to activity/condition/position, To improve gait and locomotor functions, To improve safety with gait This patient was last seen in our office 05/13/21. Pertinent comments regarding their Physical therapy will appear below: Pt seen for 6 visits in pool therapy. she no showed for her last visit and neglected to reschedule or recheck. aT this point, it has been over two months and I will disocnitnue due to nonattendance. At this point I will be discontinuing this patient from physical therapy. I would be happy to see this patient again in the future if found appropriate by the physician. Thank you! Brayden Boogie, DPT, OCS, CSCS Balance/Gait/Functional tests - Balance/Special Test Scores Functional Gait Assessment Score: 22 % Disability: 26.6700 Lower Extremity Functional Score: 34
== END 2021-05-13 19:00 | disposition home or self-care (01) ==
LOC: PT 09:30
DX: M24.575 Contracture, left foot (principal)
CPT/HCPCS: 97113; 97161

== ENCOUNTER 2023-02-28 17:58 | Emergency (ER) | payer MEDICAID, SELFPAY ==
[2023-02-28 17:59] VITALS: PULSE 86; RESP 16; TEMP 35.4; O2SAT 100; BMI 27.6
--- NOTE | 2023-02-28 18:58 | EDS_ITS ---
HPI History of Present Illness Chief Complaint: Cellulitis Narrative Narrative: With past medical history of seizure disorder presents with pain and swelling of her left fifth digit fingertip that she has had for a week. Mother states that it is from biting her nails. Her mother had performed incision and drainage on her left fifth fingertip previously with a sterile needle. They took her to urgent care and she had been put on cephalexin, but it was not improving. They took her back and they added Bactrim. Mother states that her fingertip is getting worse and more red and spreading. She has not had fever or chills. No nausea or vomiting. Mother states that patient has a problem where her body can fight infection. Concomitantly she has erythema around her umbilicus which her mother put yeast medicine on today. She presents mainly because of the increased redness in the paronychial area on her fifth digit. No lymphangitis or other symptoms. PFSH PFSH Home Medications carbamazepine 200 mg tablet 100 mg PO BIDCM 07/02/16 [History Last Taken 08/17/19] cholecalciferol (vitamin D3) 50 mcg (2,000 unit) capsule 2,000 unit PO DAILY 08/13/19 [History Last Taken Unknown] fexofenadine 180 mg tablet 180 mg PO DAILY 08/13/19 [History Last Taken Unknown] Allergy/AdvReac Type Severity Reaction Status Date / Time amoxicillin [From Augmentin] Allergy Hives Verified 02/28/23 17:59 clavulanic acid Allergy Hives Verified 02/28/23 17:59 [From Augmentin] Iodinated Contrast Media Allergy Hives Verified 02/28/23 17:59 [CONTRASTS] Penicillins [PCN] Allergy Hives Verified 02/28/23 17:59 phenobarbital Allergy Hives Verified 02/28/23 17:59 Social History Smoking Status: Never smoker ROS ROS ED ROS Narrative Constitutional: No fever, no chills. HEENT: No sore throat. No neck pain. No loss of vision. No rhinorrhea. Cardiovascular: No chest pain. No palpitations. No pedal edema. Respiratory: No cough, no shortness of breath. Abdominal: No abdominal pain. No nausea. No vomiting. Genitourinary: No dysuria. No hematuria. Musculoskeletal: No myalgias. No arthralgias. Neurologic: No headaches. No dizziness. No lightheadedness. Skin: No rash. Increased redness left paronychial fingertip. Positive redness to umbilicus. Psychiatric: No depression. No anxiety. EXAM Physical Exam Narrative Exam Narrative: Afebrile. Vital signs noted. HEENT: Normocephalic. Atraumatic. PERRL, EOMI. Neck soft and supple. No point tenderness or step off. Cardiovascular: Regular rate and rhythm. No murmurs, rubs, or gallops appreciated. Respiratory: No tachypnea. Lungs clear to auscultation bilaterally. Gastrointestinal: Abdomen soft, nontender, with normoactive bowel sounds. No rebound or guarding. Neurological: Awake. Alert. Nonfocal, nonlateralizing. Skin: No rash. Normal color. No pallor. Positive paronychial infection with dried blood on medial aspect of left fifth digit. No felon. Good capillary refill. No lymphangitis. Full range of motion of digit at DIP and PIP joint. Positive erythema but no purulent drainage in the umbilicus. Musculoskeletal: No pedal edema. Full range of motion extremities. Const Vital Signs: 02/28/23 17:59 02/28/23 19:40 02/28/23 19:50 Temperature 95.8 F L 98.0 F Temperature Source Temporal Oral Pulse Rate 86 79 Respiratory Rate 16 18 Respiratory Effort Normal Short of Breath Blood Pressure 106/71 Blood Pressure Mean 82 Pulse Ox 100 99 Oxygen Delivery Method Room Air Room Air MDM MDM [facility] Narrative Medical decision making narrative: I do not see any area that I would need to perform another incision and drainage of this paronychial infection. There is no lymphangitic streaking. With concern for osteomyelitis I will obtain an x-ray of the digit to look for bony destruction. I will obtain laboratory work to look for elevated white count, and obtain a lactic to help rule out sepsis. However, she is not meeting any SIRS criteria currently as her pulse is normal at 86. I reviewed the patient's laboratory work and she has elevated white count of 15.0, hemoglobin normal at 14.8, hematocrit 46.3, platelet count normal at 230. CMP shows normal sodium of 137 with normal potassium of 4.3. Lactic acid is normal at 1.4. I do not feel she is septic. I reviewed her imaging and interpreted the finger x-ray and see no evidence of bony destruction. I reviewed the radiology report which confirms my independent interpretation of her x-ray. I did give her 1 dose of IV antibiotics in the form of aztreonam given her multiple allergies to amoxicillin, Augmentin, and penicillins although she is currently taking cephalexin, or at least started it and is now on Bactrim. She also received a dose of vancomycin. At this point in time, I discussed observation with the patient and her mother. Through shared decision-making, the patient states she would like to go home and continue outpatient treatment. I do feel that this is reasonable as she still has a few days of antibiotics left, at least for according to her mother. I feel she should be checked by her primary care physician in the next few days for a wound check. I instructed them on warm water soaks at least 3 times a day and attempt for her to express any pus out of the area. I do feel that she may be having more hyperemia to the paronychial area. I feel she can be discharged safely home with follow-up. Return instructions to the emergency department were reviewed. Disposition is discharged home in stable condition. History & Record Review Discussion w/independent historian: Patient and Family Additional record(s) reviewed:: Prior outpatient record Lab Data Attestation: I reviewed the patient's lab results. Labs: Laboratory Results - last 24 hr 02/28/23 02/28/23 02/28/23 19:45 19:45 19:45 WBC 15.0 H RBC 4.81 Hgb 14.8 Hct 46.3 MCV 96.3 MCH 30.8 MCHC 32.0 RDW Std Deviation 52.6 H RDW Coeff of [place] 14.9 H Plt Count 230 MPV 11.0 Immature Gran % (Auto) 0.400 Neut % (Auto) 72.9 H Lymph % (Auto) 21.8 [place] % (Auto) 3.9 Eos % (Auto) 0.8 Baso % (Auto) 0.2 Absolute Neuts (auto) 10.9 H Absolute Lymphs (auto) 3.26 Nucleated RBC % 0 Sodium 137 Potassium 4.3 Chloride 102 Carbon Dioxide 26.0 Anion Gap 9 BUN 8 Creatinine 0.74 Estim Creat Clear Calc 90.32 Est GFR (MDRD) Af Amer 121 Est GFR (MDRD) Non-Af 100 BUN/Creatinine Ratio 10.9 Glucose 102 Lactic Acid 1.4 Calcium 9.8 Total Bilirubin 0.30 AST 13 L ALT 15 Alkaline Phosphatase 130 H Total Protein 8.3 H Albumin 4.3 Globulin 4.0 Albumin/Globulin Ratio 1.1 Radiography Diagnostic Testing: Clinical Impression(s) from Imaging Studies Finger X-Ray 02/28/23 19:32 IMPRESSION: Soft tissue swelling of the tip of the fifth digit. There is no underlying osseous or articular abnormality. Electronically Signed: Jack Arechiga DO at 19:59 EDT Reading Location ID and State: [address] [place] [address] Tel [phone], Service support , Discharge Plan Triage Chief Complaint: Cellulitis ED Provider: Holger Hatfield Dx/Rx/DC Orders Clinical Impression: Paronychia of finger of left hand, Cellulitis of umbilicus Instructions: ED Cellulitis, ED Paronychia of the Finger or Toe Prescriptions: No Action carbamazepine 200 MG tablet 100 mg PO BIDCM Label Comments: seizures fexofenadine 180 MG tablet 180 mg PO DAILY cholecalciferol (vitamin D3) 2,000 UNIT capsule 2,000 unit PO DAILY Primary Care Provider: Care Physician,No Primary Referrals: Genevieve Blanchard DO [Non-Staff] - 2 Days for wound check Activity Restrictions/Additional Instructions: Do warm water finger soaks in warm water and soap for 5 to 15 minutes a few times a day. Follow-up with your primary care provider in the next 2 to 3 days for a wound check. Return with increased redness, red streak up your hand, fever, new or worsening symptoms. Disposition Disposition: Home, Self Care
--- NOTE | 2023-02-28 19:32 | RAD_ITS ---
STUDY: X-RAY - LEFT HAND, ATTENTION FIFTH FINGER REASON FOR EXAM: Female, 27 years old. Pain and erythema the distal finger. Patient on antibiotics TECHNIQUE: 3 view(s) of the finger were obtained. COMPARISON: None. FINDINGS: Generalized osteopenia. Normal metacarpal head. Normal metacarpophalangeal joint. Normal proximal phalanx. Normal middle phalanx. Normal distal phalanx. Normal proximal interphalangeal joint. Normal distal interphalangeal joint. There is soft tissue swelling over the dorsum of the distal phalanx. There is no foreign body. RAD/Finger(s) Min 2 Views IMPRESSION: Soft tissue swelling of the tip of the fifth digit. There is no underlying osseous or articular abnormality. Electronically Signed: Jack Arechiga DO at 19:59 EDT ,
[2023-02-28 19:50] VITALS: BP 106/71; PULSE 79; RESP 18; TEMP 36.7; O2SAT 99
[2023-02-28 19:55] LABS: Absolute Lymphocyte Count 3.26 X10^3/uL (0.83-4.51); Absolute Neutrophil Count 10.9 X10^3/uL (2.0-7.7); Basophil# 0.03 X10^3/uL; Basophil% 0.2 % (0-1); Eosinophil# 0.12 X10^3/uL; Eosinophils% 0.8 % (0-5); Hematocrit 46.3 % (37-47); Hemoglobin 14.8 g/dL (12.0-15.0); Lymphocyte # 3.26 X10^3/ul (0.83-4.51); Lymphocyte % 21.8 % (19-41); Mean Corpuscular Hgb 30.8 pg (27.0-32.0); Mean Corpuscular Volume 96.3 fL (81-99); Monocyte# 0.58 X10^3/uL; Monocyte% 3.9 % (0-10); NRBC Flagged by Analyzer 0 % (0-5); Neutrophil # 10.92 X10^3/uL (2.7-7.7); Neutrophil % 72.9 % (47-70); Platelet Count 230 K/mm3 (150-450); RBC Distribution Width CV 14.9 % (11.6-14.6); RBC Distribution Width SD 52.6 fl (35.1-43.9); Red Blood Count 4.81 M/mm3 (4.2-5.4)
[2023-02-28 20:14] LABS: ALB/GLOB Ratio 1.1 RATIO (0.9-2.4); AST(SGOT) 13 U/L (15-37); Alanine Aminotransfer ALT/SGPT 15 U/L (13-56); Albumin, Serum 4.3 g/dL (3.2-5.0); Alkaline Phosphatase 130 U/L (45-117); Anion Gap 9 (5-15); BUN 8 mg/dL (7-18); BUN/Creat Ratio 10.9 RATIO (10-20); Calcium,Total 9.8 mg/dL (8.5-10.1); Chloride 102 mmol/L (98-107); Creatinine, Serum 0.74 mg/dL (0.55-1.02); EST Glomerular Filtration Rate 100 mL/min (>60); Est Glom Filt Rate - Afr Amer 121 mL/min (>60); Estimated Creatinine Clearance 90.32 ml/min; Glucose 102 mg/dL (74-106); Potassium 4.3 mmol/L (3.5-5.1); Protein, Total 8.3 g/dL (6.4-8.2); Sodium Level 137 mmol/L (136-145)
[2023-02-28] MEDS: Vancomycin IV 1,000 MG/200 ML BAG 200 MG IV (20:26)
[2023-02-28 20:30] LABS: Lactic Acid 1.4 mmol/L (0.4-1.9)
[2023-02-28] MEDS: DiphenhydrAMINE 50 MG/ML Syringe 25 MG IV (21:49)
[2023-02-28 22:05] VITALS: BP 99/64; PULSE 90; RESP 18; O2SAT 100
== END 2023-02-28 22:19 | disposition home or self-care (01) ==
PROVIDERS: Emergency Provider Emergency Medicine; Visit Provider Emergency Medicine
DX: L03.012 Cellulitis of left finger (principal); L03.316 Cellulitis of umbilicus
CPT/HCPCS: 73140; 80053; 83605; 85025; 96365; 96366; 96367; 96375; 99282; J2185; A4216

== ENCOUNTER → 2023-03-18 | Outpatient (CLI) | payer MEDICAID, SELFPAY ==
[2023-03-18 12:28] LABS: Absolute Lymphocyte Count 2.78 X10^3/uL (0.83-4.51); Absolute Neutrophil Count 7.2 X10^3/uL (2.0-7.7); Basophil# 0.03 X10^3/uL; Basophil% 0.3 % (0-1); Eosinophils% 0.9 % (0-5); Hemoglobin 14.5 g/dL (12.0-15.0); Lymphocyte # 2.78 X10^3/ul (0.83-4.51); Lymphocyte % 26.1 % (19-41); Mean Corp Hgb Conc 32.2 g/dL (32-36); Mean Corpuscular Volume 96.4 fL (81-99); Mean Platelet Vol. 11.8 fl (6.2-12.0); Monocyte# 0.57 X10^3/uL; Monocyte% 5.3 % (0-10); NRBC Flagged by Analyzer 0 % (0-5); Neutrophil # 7.15 X10^3/uL (2.7-7.7); Neutrophil % 67.1 % (47-70); Platelet Count 237 K/mm3 (150-450); RBC Distribution Width CV 15.7 % (11.6-14.6); RBC Distribution Width SD 56.2 fl (35.1-43.9); Red Blood Count 4.67 M/mm3 (4.2-5.4); White Blood Count 10.7 K/mm3 (4.4-11.0)
[2023-03-18 12:52] LABS: AST(SGOT) 14 U/L (15-37); Alanine Aminotransfer ALT/SGPT 15 U/L (13-56); Albumin, Serum 3.8 g/dL (3.2-5.0); Alkaline Phosphatase 120 U/L (45-117); Anion Gap 8 (5-15); BUN 8 mg/dL (7-18); BUN/Creat Ratio 13.2 RATIO (10-20); Calcium,Total 9.8 mg/dL (8.5-10.1); Chloride 105 mmol/L (98-107); EST Glomerular Filtration Rate 125 mL/min (>60); Est Glom Filt Rate - Afr Amer 152 mL/min (>60); Globulin 3.8 g/dL (2.2-4.2); Glucose 87 mg/dL (74-106); Potassium 3.6 mmol/L (3.5-5.1); Protein, Total 7.6 g/dL (6.4-8.2); Sodium Level 140 mmol/L (136-145)
== END | disposition home or self-care (01) ==
PROVIDERS: Referring Provider Clinical Nurse Specialist Acute Care; Visit Provider Clinical Nurse Specialist Acute Care
DX: G40.309 Generalized idiopathic epilepsy and epileptic syndromes, not intractable, without status epilepticus (principal)
CPT/HCPCS: 36415; 80053; 85025